=== PATIENT | female | born 1990 | race Caucasian/White ===

== ENCOUNTER 2022-08-06 17:28 | Observation (INO) | payer OTHER, SELFPAY ==
[2022-08-06 17:46] VITALS: BP 115/68; PULSE 72
[2022-08-06 17:47] VITALS: BP 111/69; PULSE 80
--- NOTE | 2022-08-06 17:58 | PC.NURSE ---
1754: Dr. Michael Hoover paged 1755: Dr. Michael Hoover responded to page. RN informed OB of pt falling down stairs and complaints of possible leaking. OB was informed of initial negative ROM plus, category 1 tracing, occasional contractions, no tenderness. Orders to send patient home with discharge instructions to preform kick counts often, and monitor for contractions.
[2022-08-06 18:01] VITALS: BP 111/66; PULSE 77
--- NOTE | 2022-08-06 18:09 | PC.NURSE ---
1728: Pt came in 1 hour post fall down the stairs. Pt complains of possible leaking at the time of the initial fall but nothing sense. No prior problems with this . Patient fell down stairs on her butt and hit her back and left arm. Patient is experiencing no pain at the time. RN will call OB to give report on patient's status and ROM plus results. 1750: ROM plus done by RN, not intially negative. Baby's FHT are Category 1, some contraction irritability, and VS are normal.
--- NOTE | 2022-08-06 18:17 | OBADM ---
This patient, Maryan Quiñonez, admitted to the OB room OB Post 115 for observation. Patient/family oriented to hospital policies and general routines including ID bracelet, bed and alarms, visiting hours, pain management, procedures, bathroom and other care routines, personal items, smoking policy, room service/diet, and visiting hours. Patient/Family are encouraged to report perceived risks to care and to ask questions if they do not understand what they are told or what they should do.
[2022-08-06 18:23] VITALS: BMI 31.1
--- NOTE | 2022-08-09 18:18 | PM.OBTRLD ---
OB - Triage/Final Diagnosis Visit Information Date of evaluation: 08/09/22 Reason for evaluation: threatened labor Comments/Additional reasons for admission: I have assessed the risk for this patient, Maryan Quiñonez, and determined that she would benefit from observation care.
== END 2022-08-06 18:27 | disposition home or self-care (01) ==
LOC: ANHOBPP 17:37
PROVIDERS: Admitting Provider Obstetrics & Gynecology; Visit Provider Obstetrics & Gynecology
DX: O47.03 False labor before 37 completed weeks of gestation, third trimester (principal); Z3A.35 35 weeks gestation of pregnancy
CPT/HCPCS: G0378; G0379

== ENCOUNTER 2022-09-01 05:05 | Inpatient (IN) | payer OTHER, SELFPAY ==
[2022-09-01] VITALS (196 sets, daily range): BP systolic 86–146; BP diastolic 41–95; PULSE 37–183; RESP 16; TEMP 36.3–38.3; O2SAT 79–100; BMI 31.1
--- NOTE | 2022-09-01 05:34 | LDADM ---
This patient, Maryan Quiñonez, was admitted to Labor/Delivery/Recovery 103 on 09/01/22 at 05:05. Plans for labor, pain management and were discussed with patient. Patient/family oriented to hospital policies and general routines including ID bracelet, bed and alarms, visiting hours, pain management, procedures, bathroom and other care routines, personal items, smoking policy, room service/diet and guest tray routines, security routines, and visiting hours. Patient/Family are encouraged to report perceived risks to care and to ask questions if they do not understand what they are told or what they should do. See OBIX for further documentation.
[2022-09-01 05:50] LABS: Basophils Percent Auto 0.4 % (0.2-1.2); Eosinophils Absolute Auto 0.1 K/mm3 (0-0.3); Eosinophils Percent Auto 1.4 % (0-4.4); Hematocrit 34.4 % (37.0-47.0); Hemoglobin 12.1 g/dL (12.0-15.0); Immature Granulocyte Absolute 0.04 K/mm3 (0.00-0.031); Immature Granulocyte Percent A 0.5 % (0-0.5); Lymphocytes Percent Auto 28.1 % (18.3-44.2); Mean Corpuscular HGB Conc 35.2 g/dl (32-36); Mean Corpuscular Hemoglobin 32.4 pg (26-34); Mean Corpuscular Volume 92.2 fl (80-100); Mean Platelet Volume 11.2 fl (7.4-10.4); Monocytes Absolute Auto 0.4 K/mm3 (0.1-0.6); Monocytes Percent Auto 5.4 % (2.6-8.5); Neutrophils Percent Auto 64.2 % (45.5-73.1); Platelet Count Result 227 k/mm3 (150-375); Red Blood Count 3.73 M/mm3 (4.2-5.4); Red Cell Distribution Width 12.4 % (11.5-14.5); White Blood Count 7.8 K/mm3 (4.5-10.0)
[2022-09-01] MEDS: OXYTOCIN 30 UNITS/NS 500 ML 30 UNITS/500 ML BAG IV CONT (05:51)
[2022-09-01] MEDS: LACTATED RINGERS 1,000 ML 125 ML IV CONT ×3 (05:51→14:08)
[2022-09-01 06:42] LABS: HIV 1/2 Ab P24 Ag Result Negative (Negative)
--- NOTE | 2022-09-01 06:54 | PM.IMHP ---
H&P: HPI History of Present Illness Date/Time: 09/01/22 06:54 Chief Complaint: Induction of labor at term Narrative: this is a 32-year-old 2 para 1 whose last menstrual period was 11/17/2021, EDC is 09/04/2022, confirmed by early ultrasound presents at term for induction of labor. 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 Family History Family History Sibling Family history of mental disorder Father Hypertension Grandparent Carcinoma of colon Family history of lung cancer Family history of type 2 diabetes mellitus Mother Malignant neoplasm of skin Social History Social History Smoking status: Never smoker Second hand tobacco smoke exposure: No Alcohol intake: current Drinks per week: 1 Substance use: former Substance use type: does not use Lack of Transportation: No Lack of Food: Never True Current Housing: I Have Housing Concerned About Future Housing: No Difficulty Paying Gas/Electric Bills: No Difficulty Paying for Meds: No Currently Unemployed: No Education: Master's Degree or Higher Difficulty w/ Childcare or Family Care: No Living arrangements: other Additional living arrangements comments: Occupation/Education: occupation 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 Gender identity (if verbalized by the patient): Female Sexual Orientation (if Verbalized by the Patient): Straight or Heterosexual Spiritual care concerns: No Meds Home Medications and Allergies Home Medications Medication Instructions Recorded Confirmed Type prenat.vits,[place],oag-dlsw-qwkrt 1 tablet PO DAILY 08/18/22 08/18/22 History Allergies Allergy/AdvReac Type Severity Reaction Status Date / Time No Known Allergies Allergy Unverified 10/27/21 14:54 Vital Signs Vital Signs - 24 hr 09/01/22 05:30 09/01/22 05:45 09/01/22 06:00 Pulse Rate 83 85 88 Blood Pressure 112/75 108/77 108/69 Oxygen Delivery 09/01/22 06:15 03/22/23 06:30 09/01/22 06:45 Pulse Rate 77 72 72 Blood Pressure 110/67 117/71 109/71 Oxygen Delivery 09/01/22 05:34 Pulse Rate Blood Pressure Oxygen Delivery Room Air Exam Const: General: cooperative, healthy appearing and comfortable Nutritional Appearance: average body habitus Orientation/consciousness: oriented to person, oriented to place and oriented to time HENMT: Head: normal to inspection Resp: Effort & Inspection: normal respiratory effort Cardio: Rate: regular rate Rhythm: regular rhythm Heart sounds: S1 normal heart sound present and S2 normal heart sound present GI: Inspection: normal to inspection ( gravid soft uterus) : External Female Exam: normal external appearance Speculum Exam - Vagina: normal appearance of the vagina Speculum Exam - Cervix: normal appearance of the cervix ( cervix 3/75/2. AROM clear. FHTs reassuring) H&P: Results Labs Labs: Short CBC 09/01/22 Range/Units 05:24 WBC 7.8 (4.5-10.0) K/mm3 Hgb 12.1 (12.0-15.0) g/dL Hct 34.4 L (37.0-47.0) % Plt Count 227 (150-375) k/mm3 Assessment and Plan Assessment and plan (1) Term : Code(s): Z34.90 - Encounter for supervision of normal , unspecified, unspecified trimester Status: Acute Plan medical induction of labor. Spontaneous vaginal delivery is expected. She is an epidural candidate
[2022-09-01 10:33] LABS: Rapid Plasma Reagin Non-Reactive (NonReactive)
[2022-09-01] MEDS: ONDANSETRON INJ 4 MG/2 ML VIAL IV PUSH (14:06)
--- NOTE | 2022-09-01 16:33 | PM.OBPNLAB ---
Pain Control Date/time seen: 09/01/22 16:33 Pain control: tolerating well and epidural Pelvic Exam Dilation (cm): 4 Effacement (%): 80 station: -2 Amniotic membrane status: Leaking Contractions Monitor mode: Internal
--- NOTE | 2022-09-01 19:02 | PM.OBPRVD ---
OB - Delivery Note Procedure Delivery date: 09/01/22 Events: Elective Induction of Labor Induction method: AROM Delivery augmentation: Pitocin Delivery monitor: External FHT and Internal Uterine Route of delivery: Episiotomy description: None Laceration Description: None Specimen: No Quantitative Blood Loss (ml): 60 Anesthesia type: Epidural Disposition: Floor Baby Date of : 09/01/22 Time of : 18:51 Weeks of gestation at delivery: 39 gender: Female Weight (pounds): 9 Weight (ounces): 0 presentation: vertex position: Right Occiput Anterior Placenta delivery description: Spontaneous Cord Vessel Description: 3 Vessels, Nuchal Cord, Loose and Delayed Cord Clamping score one minute: 8 score five minutes: 9
[2022-09-01] MEDS: OXYTOCIN 30 UNITS/NS 500 ML 30 UNITS/500 ML BAG 125 UNITS IV CONT (19:30)
--- NOTE | 2022-09-01 19:49 | PC.NURSE ---
Informed Dr. Michael Hoover of elevated temps of 100.4 before delivery and 100.9 after delivery. Orders received for 500cc LR bolus and 2g Ancef.
[2022-09-01] MEDS: ceFAZolin 2 GM/D5W 50 ML 2 GM/50 ML BAG IVPB (19:58)
[2022-09-01] MEDS: LACTATED RINGERS 500 ML 999 ML IV CONT (20:00)
[2022-09-01] MEDS: IBUPROFEN 600 MG TABLET PO (20:31)
[2022-09-01] MEDS: WITCH HAZEL 40 PADS 1 PAD TOPICAL (21:18)
[2022-09-01] MEDS: BENZOCAINE 20% AER SPR (*SP) 56 GM CAN 1 SPRAY TOPICAL (21:18)
[2022-09-02] MEDS: IBUPROFEN 600 MG TABLET PO ×2 (04:16→14:44)
[2022-09-02 05:57] LABS: Hematocrit 33.9 % (37.0-47.0); Hemoglobin 11.4 g/dL (12.0-15.0)
--- NOTE | 2022-09-02 06:14 | PM.DS ---
DS: Admitting Diagnosis Discharge Date 09/03/22 Admitting Diagnosis term DS: Discharge Diagnosis Discharge Diagnosis (1) Term : Code(s): Z34.90 - Encounter for supervision of normal , unspecified, unspecified trimester Status: Acute DS: Summary Hospital Course Reason for hospitalization: patient was admitted for induction of labor at term Hospital Course: she underwent successful spontaneous vaginal delivery via induction of labor. Her hospital course unremarkable. She was, ambulating, eating regular diet, voiding without difficulty, taking care of the baby without difficulty. Time Spent with Patient Time attestation: Total time spent providing and/or coordinating discharge services: Exam Const: General: cooperative, healthy appearing, comfortable and well groomed Orientation/consciousness: oriented to person, oriented to place and oriented to time HENMT: Head: normal to inspection Resp: Effort & Inspection: normal respiratory effort Cardio: Rate: regular rate Rhythm: regular rhythm Heart sounds: S1 normal heart sound present and S2 normal heart sound present GI: Inspection: normal to inspection ( Fundus firm below the umbilicus) DS: Data Data Completed and Pending Labs on day of discharge: Labs from last 24 hours 09/02/22 09/01/22 09/01/22 04:58 05:25 05:25 Hgb 11.4 L Hct 33.9 L RPR Non-reactive HIV 1&2 Ab/P24 Ag 4thGn Negative Blood Type Antibody Screen 09/01/22 05:24 Hgb Hct RPR HIV 1&2 Ab/P24 Ag 4thGn Blood Type A Positive Antibody Screen Negative Discharge Plan Discharge Attending physician on discharge: Nagi Jacob Discharging Clinician: Nagi Jacob Patient Disposition: Home, Self-Care Activity: may shower and pelvic rest Diet: heart healthy Wound Care Instructions: follow printed instructions Discharge Instructions: Education: Mom and Baby Guide Given to: Mother Follow-Up: Call your delivering provider's office for an appointment to be seen in: 4 Weeks Mom and baby should come to the [facility] for the follow-up appointment. Appointment Date/Time: September 04, 2022 at 1:30 pm What to expect at your follow-up visit: Blood Pressure Check Call [phone] if you are unable to keep your appointment time. BREAST CARE: * Wear a snug supportive bra. * For engorgement discomfort: Breast Feeding: * Apply warm moist washcloths * Express milk as needed to relieve engorgement * Wear loose clothing * For sore nipples: * Identify correct latch-on * Apply warm moist washcloths before and after nursing * Air dry nipples after nursing * May apply Lansinoh cream to nipples PERINEAL CARE: * Until bleeding stops, use your robert bottle after urinating * Change your pad frequently throughout the day * You may take sitz baths several times a day (fill your bathtub with warm water and soak for 20 minutes.) Do NOT bathe in the water * No tub baths until seen by your physician - You may shower ACTIVITY: * Rest as much as possible. * Do not exercise or lift anything heavier than your baby (such as laundry or other children.) * Avoid stairs or driving as much as possible. * Do not put anything into the vagina. No douching, tampons, or sexual activity until seen by physician. NOTIFY PHYSICIAN IF YOU HAVE ANY QUESTIONS OR IF ANY OF THE FOLLOWING SYMPTOMS OCCUR: * If your perineum becomes red, swollen, or more painful than what you have experienced in the hospital. * If your vaginal bleeding becomes foul smelling. * If your vaginal bleeding becomes more heavy than a period or if your bleeding changes from pink to bright red. However, you may pass an occasional walnut-sized clot once or twice for the first week . * If you experience a sharp, shooting pain in you calves. * If yo
--- NOTE | 2022-09-02 07:00 | PC.NURSE ---
PT introductions made and plan of care discussed per post , pain management, breast feeding, daily care activities. PT and spouse both recipients of such instructions and no barriers to learning identified at this time. PT received such instructions per one to one discussion, mom baby care guide and demonstrations this shift. PT verbalized understanding of such care.
--- NOTE | 2022-09-02 07:10 | PC.NURSE ---
PT introductions made and plan of care discussed per post , pain management, breast feeding, daily care activities. PT and fob both recipients of such instructions and no barriers to learning identified at this time. PT received such instructions per one to one discussion, mom baby care guide and demonstrations this shift. PT verbalized understanding of such care.
[2022-09-02 08:25] VITALS: BP 96/55; PULSE 71; RESP 16; TEMP 36.6; O2SAT 98
--- NOTE | 2022-09-02 09:24 | WPDANLDPN2 ---
Anes-Prog Note L&D Date/Time: 09/02/22 09:24 Comfortable throughout: labor and delivery Neuraxial method: epidural Epidural/Spinal procedure site: clean & non-tender Neuro status: Neuro function grossly intact. Cardiovascular status: normal Respiratory status: normal Airway patency: baseline Mental status: baseline Post-Op hydration status: normal Vital Signs: Last Vital Signs Temp 97.8 F 09/02/22 08:25 Pulse 71 09/02/22 08:25 Resp 16 09/02/22 08:25 BP 96/55 L 09/02/22 08:25 Pulse Ox 98 09/02/22 08:25 O2 Del Method Room Air 09/01/22 05:34 Pain score (VAS): 0/10 I/O: Intake & Output 09/01/22 09/02/22 09/02/22 23:59 07:59 15:59 Output Total 145 Balance -145 Post-procedural complaints: none Patient feedback: Patient satisfied with anesthetic care.
[2022-09-02 09:41] VITALS: PULSE 71; RESP 16; O2SAT 98
[2022-09-02] MEDS: ACETAMINOPHEN 325 MG TABLET 650 MG PO ×2 (09:41→17:57)
[2022-09-02] MEDS: MULTIVIT/MIN/PREN/FOL AC/IRON TABLET 1 TAB PO (09:42)
[2022-09-02] MEDS: DOCUSATE SODIUM 100 MG CAPSULE PO ×2 (09:42→17:57)
[2022-09-02 11:41] VITALS: BP 90/50; PULSE 64; RESP 16; TEMP 36.9; O2SAT 96
--- NOTE | 2022-09-02 16:05 | PC.NURSE ---
[phone] Introductions were made, then consulted with patient to assess needs related to . Mother led the conversation with her?plans to feed?her infant and the?experience so far. Mother consents to working together to see if their infant will breastfeed after visualizing REM and squirming even though appears to be asleep swaddled in her bassinet. Mother works well with her infant with encouragement and education. Encouraged understanding of the benefits of skin to skin (demonstrating unwrapping and placing upright on her chest), stimulating with massage touch, changing positions to encourage wakefulness, how to watch for early feeding cues, responsive feeding, feeding on demand (aiming for 8-12 times in 24 hours, about every 2-3 hours), milk production (mother is able to hand express milk), building/maintaining a milk supply, duration of feeding, signs of adequate intake/output and how to record on the feeding sheet. Reviewed positioning and ear, shoulder, hip alignment, supporting the breast to facilitate a deep latch, asymmetrical latch (off-center), leading with the chin with a big, open, wide gape and body close to mother. Infant latched optimally to the right and left breast in football and cross cradle laid-back positions. Education given to mother of how to visualize suck/swallow ratios and listen for drinking at the breast. was able to maintain latch without discomfort to mother. Nipple care reviewed with optimal latch and good positioning. Reviewed good handwashing when or touching the breast/nipples to prevent infection. Resources used to facilitate learning were used with the tool, mom and baby guide. Mother voiced understanding of skin to skin, stimulating with massage touch, responsive feedings, hand expressed colostrum, talking to infant to encourage if it has been 2 -2.5 hours since the start of the last , to call if does not latch, or if there is discomfort with . Resources provided for inpatient and outpatient services with the feeding sheet, mom/baby guide, business card and name written on the white board. Mother voiced understanding of information.
[2022-09-02 17:00] VITALS: BP 94/52; PULSE 70; RESP 18; TEMP 36.6; O2SAT 98
[2022-09-02 19:20] VITALS: BP 94/54; PULSE 67; RESP 16; TEMP 36.8
[2022-09-03] MEDS: IBUPROFEN 600 MG TABLET PO ×2 (00:11→10:45)
[2022-09-03 07:30] VITALS: BP 125/84; PULSE 59; RESP 18; TEMP 37.1; O2SAT 100
--- NOTE | 2022-09-03 07:30 | PM.OBPNVD ---
OB - PN: Subj Subjective Date/time seen: 09/03/22 07:30 Patient comments: no complaints and pain well controlled baby status: doing well and nursing well OB - PN: Obj Data Labs 09/02/22 04:58 OB - PN A/P Plan day: 2 Plan: routine care, discharge home and follow up 6 weeks Time Spent With Patient Time: Total time spent is greater than 50% in coordination of care (as documented) at patient's floor/unit and/or counseling patient: Time with patient: less than 15 minutes Exam Const: General: cooperative, healthy appearing and comfortable Nutritional Appearance: average body habitus Orientation/consciousness: oriented to person, oriented to place and oriented to time HENMT: Head: normal to inspection Resp: Effort & Inspection: normal respiratory effort Cardio: Rate: regular rate Rhythm: regular rhythm Heart sounds: S1 normal heart sound present and S2 normal heart sound present GI: Inspection: normal to inspection
--- NOTE | 2022-09-03 08:00 | PC.NURSE ---
PT introductions made and plan of care discussed per post , pain management, breast feeding, daily care activities and pending discharge to home. PT and fob both recipients of such instructions and no barriers to learning identified at this time. PT received such instructions per one to one discussion, mom baby care guide and demonstrations this shift. PT verbalized understanding of such care.
[2022-09-03 10:00] VITALS: PULSE 59; RESP 18; O2SAT 100
[2022-09-03] MEDS: DOCUSATE SODIUM 100 MG CAPSULE PO (10:45)
--- NOTE | 2022-09-03 10:45 | PC.NURSE ---
Pt received discharge instructions per protocol and verbalized understanding of such care. Patient viewed the discharge video Mother & Baby Care, The First Two Weeks last evening. Patient was given the opportunity and encouraged to ask questions. Patient verbalized understanding of information shared and has been given the mother/baby guide for home reference.
[2022-09-03] MEDS: ACETAMINOPHEN 325 MG TABLET 650 MG PO (10:46)
[2022-09-03] MEDS: MULTIVIT/MIN/PREN/FOL AC/IRON TABLET 1 TAB PO (10:47)
--- NOTE | 2022-09-03 12:10 | PC.NURSE ---
PT discharged to home ambulatory accompanied by spouse and and taken to waiting car. Follow up appts confirmed
--- NOTE | 2022-09-03 13:21 | PC.NURSE ---
[id number] Mother led the conversation with her experience and plan to feed her infant so far and her ability to independently latch infant optimally without discomfort. Mother is feeding appropriately for growth of and understands stimulating infant to eat if needed. has had appropriate feedings in the last 24 hours meets the outcomes for weight, output and jaundice at this time. Mother states she is confident to continue effectively her at home, when to call for assistance and denies any additional assistance or education at this time. Reinforced understanding of milk production, transition of milk, signs of adequate intake, transition of stool, prevention/relief of engorgement, responsive watching for feeding cues, the different methods of stimulating to breastfeed 2-3 hours after the start of the last feeding, community resources, and when to call a provider using the resource of the mom and baby guide. Mother voiced understanding of the education shared.
[2022-09-04 13:57] VITALS: BP 102/72; PULSE 67; RESP 18; TEMP 37.2; O2SAT 98
== END 2022-09-03 12:10 | disposition home or self-care (01) | DRG 807 ==
LOC: ANHLDR 05:09 → ANHOB2 21:46
PROVIDERS: Admitting Provider Obstetrics & Gynecology; Visit Provider Obstetrics & Gynecology
DX: O99.344 Other mental disorders complicating childbirth (principal); Z37.0 Single live birth; F41.9 Anxiety disorder, unspecified; O69.81X0 Labor and delivery complicated by cord around neck, without compression, not applicable or unspecified; Z3A.39 39 weeks gestation of pregnancy
CPT/HCPCS: 36415; 85014; 85018; 85025; 86592; 86703; 86850; 86900; 86901; A9270; G0432; J0690; J2405; J2590; J2795; J7120

== ENCOUNTER 2022-11-22 17:23 | Emergency (ER) | payer OTHER, SELFPAY ==
[2022-11-22 17:48] VITALS: BP 147/77; PULSE 69; RESP 16; TEMP 36.6; O2SAT 100
[2022-11-22 18:30] LABS: Basophils Absolute Auto 0.1 K/mm3 (0.0-0.1); Basophils Percent Auto 0.5 % (0.2-1.2); Eosinophils Absolute Auto 0.1 K/mm3 (0-0.3); Eosinophils Percent Auto 1.4 % (0-4.4); Hematocrit 39.5 % (37.0-47.0); Hemoglobin 13.5 g/dL (12.0-15.0); Immature Granulocyte Absolute 0.01 K/mm3 (0.00-0.031); Immature Granulocyte Percent A 0.1 % (0-0.5); Lymphocytes Absolute Auto 3.17 K/mm3 (0.9-3.2); Mean Corpuscular HGB Conc 34.2 g/dl (32-36); Mean Corpuscular Hemoglobin 32.1 pg (26-34); Mean Corpuscular Volume 93.8 fl (80-100); Mean Platelet Volume 10.8 fl (7.4-10.4); Monocytes Absolute Auto 0.6 K/mm3 (0.1-0.6); Monocytes Percent Auto 6.7 % (2.6-8.5); Neutrophils Absolute Auto 5.3 K/mm3 (1.3-6.7); Neutrophils Percent Auto 57.3 % (45.5-73.1); Platelet Count Result 220 k/mm3 (150-375); Red Blood Count 4.21 M/mm3 (4.2-5.4); Red Cell Distribution Width 12.4 % (11.5-14.5); White Blood Count 9.3 K/mm3 (4.5-10.0)
[2022-11-22 18:39] LABS: Prothrombin Time 13.4 Seconds (11.1-14.7)
[2022-11-22 18:40] LABS: Alanine Aminotransferase 25 U/L (6-35); Albumin Level 4.4 g/dL (3.5-5.1); Alkaline Phosphatase 53 U/L (38-126); Anion Gap 10 mmol/L (8-16); Aspartate Amino Transferase 25 U/L (14-36); Bilirubin,Total 0.5 mg/dL (0.2-1.3); Blood Urea Nitrogen 15 mg/dL (7-17); Calcium 8.9 mg/dL (8.4-10.2); Carbon Dioxide 25 mmol/L (22-30); Chloride 103 mmol/L (98-107); Estimated CRCL calculation 118 ml/min; Estimated Glomerular Filt Rate > 60; Glucose 102 mg/dL (65-110); Partial Thromboplastin Time 28.6 SECONDS (22.3-36.8); Potassium 3.5 mmol/L (3.4-5.0); Sodium 138 mmol/L (137-145)
[2022-11-22 19:08] LABS: SPREG INTERNAL CONTROL Positive; Serum Qual hCG Negative
--- NOTE | 2022-11-22 19:41 | ED.GENADULT ---
HPI - General Adult General Chief complaint: GI Bleed Stated complaint: bloody stool Time Seen by Provider: 11/22/22 19:12 History of Present Illness HPI narrative: Patient is a 32-year-old female who presents the emergency department with chief complaint of rectal bleeding patient reports that she had a bowel movement this morning with normal stool but bright red blood in the toilet bowl. The patient reports that she felt as though there was a small hemorrhoid that also reports that yesterday she had some abdominal cramping patient reports the pain in her abdomen has resolved patient reports she also has history of IBS patient denies vomiting denies diarrhea denies black tarry stool patient reports he is not on any anticoagulants Related Data Home Medications Medication Instructions Recorded Confirmed prenat.vits,[place],cpz-odip-slcux 1 tablet PO DAILY 08/18/22 08/18/22 Allergies Allergy/AdvReac Type Severity Reaction Status Date / Time No Known Allergies Allergy Unverified 10/27/21 14:54 Review of Systems Review of Systems: A 10 system review of systems was completed on the patient and is negative except for what is stated in the HPI. Nursing and ancillary documentation was reviewed. [facility] Past Medical History Medical History Anxiety Depression Encounter for IUD insertion (05/05/21) Mirena insertion Encounter for IUD removal (10/27/21) mirena iud removal HPV in female 2012 +hpv Family History Family History Sibling Family history of mental disorder Father Hypertension Grandparent Carcinoma of colon Family history of lung cancer Family history of type 2 diabetes mellitus Mother Malignant neoplasm of skin Social History Social History Smoking status: Never smoker Second hand tobacco smoke exposure: No Alcohol intake: current Drinks per week: 1 Substance use: former Substance use type: does not use Lack of Transportation: No Lack of Food: Never True Current Housing: I Have Housing Concerned About Future Housing: No Difficulty Paying Gas/Electric Bills: No Difficulty Paying for Meds: No Currently Unemployed: No Education: Master's Degree or Higher Difficulty w/ Childcare or Family Care: No Living arrangements: other Additional living arrangements comments: Occupation/Education: occupation Additional occupation/education comments: digital engineer Gender identity (if verbalized by the patient): Female Sexual Orientation (if Verbalized by the Patient): Straight or Heterosexual Spiritual care concerns: No Exam Narrative: GENERAL: Well-appearing, well-nourished, and in no acute distress. HEAD: Normocephalic, atraumatic. EYES: PERRLA and EOMI. ENT: Nares clear, no rhinorrhea or epistaxis. Mucous membranes moist. NECK: Supple. CHEST: Clear to auscultation. No respiratory distress. HEART: Regular rate and rhythm. No murmur heard. Normal peripheral pulses. ABDOMEN: Soft, nontender, nondistended, normal active bowel sounds. : Small hemorrhoid at approximately 3 o'clock position stool is guaiac negative EXTREMITIES: Normal range of motion. No edema. SKIN: Warm, dry, no rash. NEURO: No focal deficits. Alert and oriented x3. PSYCH: Normal mood and affect. Course Vital Signs Vital signs: Vital Signs Temperature 36.6 C 11/22/22 17:48 Pulse Rate 69 11/22/22 17:48 Respiratory Rate 16 11/22/22 17:48 Blood Pressure 147/77 H 11/22/22 17:48 Pulse Oximetry 100 11/22/22 17:48 Oxygen Delivery Room Air 11/22/22 17:48 Temperature 36.6 C 11/22/22 17:48 Pulse Rate 69 11/22/22 17:48 Respiratory Rate 16 11/22/22 17:48 Blood Pressure 147/77 H 11/22/22 17:48 Pulse Oximetry 100 11/22/22 17:48 Oxygen Delivery Room Air 11/22/22 1
== END 2022-11-22 20:20 | disposition home or self-care (01) ==
PROVIDERS: Emergency Medicine; Emergency Provider Emergency Medicine
DX: K64.9 Unspecified hemorrhoids (principal); K58.9 Irritable bowel syndrome, unspecified
CPT/HCPCS: 36415; 80053; 84703; 85025; 85610; 85730; 86850; 86900; 86901; 99283

== ENCOUNTER 2023-07-03 12:56 | Emergency (ER) | payer OTHER, SELFPAY ==
[2023-07-03 13:03] VITALS: BP 132/92; PULSE 71; RESP 18; TEMP 36.8; O2SAT 100
[2023-07-03 13:22] LABS: Basophils Absolute Auto 0.1 K/mm3 (0.0-0.1); Basophils Percent Auto 0.7 % (0.2-1.2); Eosinophils Absolute Auto 0.1 K/mm3 (0-0.3); Eosinophils Percent Auto 1.8 % (0-4.4); Hemoglobin 13.9 g/dL (12.0-15.0); Immature Granulocyte Absolute 0.01 K/mm3 (0.00-0.031); Immature Granulocyte Percent A 0.1 % (0-0.5); Lymphocytes Absolute Auto 2.44 K/mm3 (0.9-3.2); Lymphocytes Percent Auto 36.4 % (18.3-44.2); Mean Corpuscular HGB Conc 33.1 g/dl (32-36); Mean Corpuscular Hemoglobin 32.2 pg (26-34); Mean Corpuscular Volume 97.2 fl (80-100); Mean Platelet Volume 10.5 fl (7.4-10.4); Monocytes Absolute Auto 0.4 K/mm3 (0.1-0.6); Neutrophils Absolute Auto 3.7 K/mm3 (1.3-6.7); Platelet Count Result 234 k/mm3 (150-375); Red Blood Count 4.32 M/mm3 (4.2-5.4); Red Cell Distribution Width 11.8 % (11.5-14.5); White Blood Count 6.7 K/mm3 (4.5-10.0)
[2023-07-03 13:32] VITALS: BP 121/81; O2SAT 99
[2023-07-03 13:34] LABS: Appearance Urine Clear (Clear); Bacteria Urine None Seen /hpf; Bilirubin Urine Negative (Negative); Blood Urine 2+ (Negative); Color Urine Yellow (Yellow); Glucose Urine UA Negative (Negative); Ketones Urine Negative (Negative); Leukocyte Esterase Ur Trace LEU/UL (Negative); Nitrate Urine Negative (Negative); Non Pathogenic Casts 0-2; Protein Urine Negative (Negative); RBC Urine 0-2 /hpf (0-2); Specific Grav Ur 1.007 (1.001-1.035); Squamous Epithelial Cell Urine None seen /hpf (Few); Urobilinogen Urine 0.2 mg/dL (<2.0); WBC Urine 0-5 /hpf
[2023-07-03 13:34] LABS: Alanine Aminotransferase 27 U/L (6-35); Albumin Level 4.9 g/dL (3.5-5.1); Alkaline Phosphatase 57 U/L (38-126); Anion Gap 8 mmol/L (8-16); Aspartate Amino Transferase 27 U/L (14-36); Bilirubin,Total 0.9 mg/dL (0.2-1.3); Blood Urea Nitrogen 11 mg/dL (7-17); Calcium 9.3 mg/dL (8.4-10.2); Carbon Dioxide 28 mmol/L (22-30); Chloride 103 mmol/L (98-107); Estimated CRCL calculation 98 ml/min; Estimated Glomerular Filt Rate > 60; Glucose 99 mg/dL (65-110); Lipase 109 U/L (23-300); Potassium 3.8 mmol/L (3.4-5.0); Sodium 139 mmol/L (137-145)
[2023-07-03 13:45] LABS: Add Urine Microscopic? YES
[2023-07-03 13:46] VITALS: BP 123/78; O2SAT 100
[2023-07-03] MEDS: PANTOPRAZOLE SODIUM IV 40 MG VIAL IV PUSH (14:00)
[2023-07-03] MEDS: MAG HYDROX/AL HYDROX/SIMETH 30 ML UDC PO (14:00)
--- NOTE | 2023-07-03 14:01 | ED.ABDPAIN ---
HPI - Abdominal Pain General Chief Complaint: Abdominal Pain Stated Complaint: ABDOMINAL BLOATING [id number] Time Seen by Provider: 07/03/23 13:06 History of Present Illness HPI narrative: Patient states that for the past week or so she has been having some mild nausea, epigastric discomfort, and bloating/discomfort usually after eating. Has also had less appetite. She has no fevers or chills. No dysuria. Also wants to make sure she is not . Related Data Home Medications Medication Instructions Recorded Confirmed prenat.vits,[place],[id number] 1 tablet PO DAILY 08/18/22 08/18/22 Allergies Allergy/AdvReac Type Severity Reaction Status Date / Time No Known Allergies Allergy Unverified 07/03/23 13:05 Review of Systems Review of Systems: CONST: No fever. HEENT: No sore throat C/V: No chest pain RESP: No cough GI: Reports abdominal pain, nausea : No dysuria. M/S: No joint pain. SKIN: No rash. 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 Family History Family History Sibling Family history of mental disorder Father Hypertension Grandparent Carcinoma of colon Family history of lung cancer Family history of type 2 diabetes mellitus Mother Malignant neoplasm of skin Social History Social History Smoking status: Never smoker Second hand tobacco smoke exposure: No Alcohol intake: current Drinks per week: 1 Substance use: former Substance use type: does not use Lack of Transportation: No Lack of Food: Never True Current Housing: I Have Housing Concerned About Future Housing: No Difficulty Paying Gas/Electric Bills: No Difficulty Paying for Meds: No Currently Unemployed: No Education: Master's Degree or Higher Difficulty w/ Childcare or Family Care: No Living arrangements: other Additional living arrangements comments: Occupation/Education: occupation 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 EYES: EOMI, conjunctiva normal ENT: Hearing grossly intact LUNGS: Nonlabored breathing. HEART: [Regular rate and rhythm] ABD: [Soft], [nontender to palpation]. Negative McBurney's, negative Teague's EXT: Normal range of motion SKIN: [No rashes or lesions.] NEURO: [Alert and oriented x 3. No gross focal sensory or strength deficits.] PSYCH: Normal affect Course Vital Signs Vital signs: Vital Signs Temperature 98.2 F 07/03/23 13:03 Pulse Rate 71 07/03/23 13:03 Respiratory Rate 18 07/03/23 13:03 Blood Pressure 132/92 H 07/03/23 13:03 Pulse Oximetry 100 07/03/23 13:03 Oxygen Delivery Room Air 07/03/23 13:03 Temperature 98.2 F 07/03/23 13:03 Pulse Rate 66 07/03/23 14:08 Respiratory Rate 20 07/03/23 14:08 Blood Pressure 132/92 H 07/03/23 13:03 Pulse Oximetry 99 07/03/23 14:08 Oxygen Delivery Room Air 07/03/23 13:03 MDM - Abdominal Pain MDM Narrative Medical decision making narrative: Electronic medical record was reviewed. Patient presented to the ED with complaint of [mild, intermittent post-prandial abdominal pain and vomiting]. Vitals [were within acceptable limits]. Physical exam revealed soft abdomen wit
[2023-07-03] MEDS: FAMOTIDINE 20 MG/2 ML VIAL IV PUSH (14:03)
[2023-07-03 14:08] VITALS: PULSE 66; RESP 20; O2SAT 99
[2023-07-03 14:16] VITALS: BP 119/87; O2SAT 99
[2023-07-03 14:25] VITALS: BP 119/87; PULSE 70; RESP 18; O2SAT 100
== END 2023-07-03 14:27 | disposition home or self-care (01) ==
PROVIDERS: Emergency Provider Emergency Medicine; PCP Nurse Practitioner Family
DX: R10.13 Epigastric pain (principal)
CPT/HCPCS: 36415; 80053; 81001; 81025; 83690; 85025; 96374; 96375; 99284; A9270; C9113